=== PATIENT | female | born 1950 | race Caucasian/White ===

== ENCOUNTER → 2016-07-15 | Outpatient (CLI) | payer BC ==
[~2016-07-15] MED LIST: ACET-1256 PO; CHOL100010 PO; FLX10 PO; HYDR-4313 PO; HYDR-5688 PO; LSN5 PO; MELO15TA4 PO; PANT40TA PO; PRED20TA PO; RANI300T2 PO
--- NOTE | 2016-07-15 13:48 | DIAGNOSTIC IMAGING REPORT ---
L-SPINE MIN 4 VIEWS ROUTINE CLINICAL HISTORY: Back pain. COMPARISON: None FINDINGS: There is mild rightward curvature of the lumbar spine. No acute fracture is identified. Sacroiliac joints are in intact. There is mild to moderate degenerative disc disease and facet arthrosis. IMPRESSION: 1. No acute lumbar spine fracture. 2. Mild dextroscoliosis of the lumbar spine. 3. Mild to moderate multilevel degenerative changes of the lumbar spine. Electronically signed by: Saravanan Smith M.D. 07/15/2016 1:46 PM Dictated Date/Time: 07/15/2016 1:45 PM
--- NOTE | 2016-07-15 13:53 | DIAGNOSTIC IMAGING REPORT ---
THORACIC SPINE 3 VIEWS ROUTINE CLINICAL HISTORY: Back pain COMPARISON STUDY: No previous studies for comparison. FINDINGS: The paraspinal line is not displaced. No acute fractures are visualized. There is a minor inferior endplate T9 deformity which is felt to be old. Degenerative changes are present at the T9-T10 level. IMPRESSION: Degenerative changes at the T9-10 level. No acute fractures are visualized. Electronically signed by: Kael Hamilton M.D. 07/15/2016 1:52 PM Dictated Date/Time: 07/15/2016 1:51 PM
== END | disposition home or self-care (01) ==
LOC: C.RAD1850 13:06
PROVIDERS: ATTEND Nurse Practitioner Family
DX: M54.9 Dorsalgia, unspecified (principal)

== ENCOUNTER 2016-07-18 15:31 | Emergency (ER) | payer BC ==
[~2016-07-18] VITALS: Ht 163.8 cm; Wt 78.2 kg
[~2016-07-18 15:31] MED LIST changes: -ACET-1256 PO; -FLX10 PO; -HYDR-4313 PO; -HYDR-5688 PO; -LSN5 PO; -MELO15TA4 PO; -PRED20TA PO
[2016-07-18 15:33] VITALS: TEMP 36.5; Ht 163.8 cm; Wt 78.2 kg
--- NOTE | 2016-07-18 16:01 | EMERGENCY ROOM VISIT NOTE ---
History Report prepared by Frida: Xiomara Witt Under the Supervision of: Dr. Clovis Dubois M.D. First contact with patient: 15:41 Chief Complaint: BACK PAIN Stated Complaint: BACK PAIN ON RIGHT SIDE History of Present Illness The patient is a 66 year old female who presents to the Emergency Room with complaints of worsening right sided back pain beginning 2 weeks prior to arrival. She rates her pain as 8/10 in severity. The patient had X-rays done earlier this week that revealed what looked like arthritis. She notes that moving from laying down to sitting up worsens the pain. The patient has been taking muscle relaxers, Tylenol and Hydrocodone for the pain. She denies kidney stone history, past kidney infections, fall or trauma to the back, rash, urinary symptoms, or fever. The patient was referred to the ED by her PCP. She is starting physical therapy next week. 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 A total of 10 systems reviewed and were otherwise negative. Past Medical & Surgical Surgical Problems: (1) S/P appendectomy Family History Cancer Diabetes mellitus FH: heart disease Hypertension Social History Smoking Status: Never Smoker Alcohol Use: occasionally Marital Status: Housing Status: lives with significant other Occupation Status: employed Current/Historical Medications Scheduled Cholecalciferol (Vitamin D), 2,000 INTER.UNIT PO DAILY Lisinopril (Lisinopril), 5 MG PO QAM Meloxicam (Meloxicam), 15 MG PO QAM Pantoprazole (Protonix), 40 MG PO QAM Prednisone (Prednisone), 0 PO DAILY Ranitidine (Zantac), 300 MG PO HS Scheduled PRN Acetaminophen (Tylenol), 1,000 MG PO DIRECTED PRN for Pain Acetaminophen/Hydrocodone (Hydrocodone/Acetaminophen 5-325 mg), 1 TAB PO BID PRN for Pain Cyclobenzaprine HCl (Cyclobenzaprine HCl), 10 MG PO DIRECTED PRN for Muscle Spasms Hydrocodone/Acetaminophen 5MG/325MG ([place] 5MG/325MG), 1 TABLET PO Q4H PRN for Pain Allergies Coded Allergies: Amoxicillin (Verified Allergy, Unknown, DIGESTIVE ISSUES, 07/18/16) Physical Exam Vital Signs Date Time Temp Pulse Resp B/P Pulse Ox O2 Delivery O2 Flow Rate FiO2 07/18/16 17:29 80 18 147/85 95 Room Air 07/18/16 15:33 36.5 91 18 143/91 98 Room Air Physical Exam GENERAL: Patient is in no acute distress. HEENT: No acute trauma, normocephalic atraumatic, mucous membranes moist, no nasal congestion, no scleral icterus. NECK: No stridor, no adenopathy, no meningismus, trachea is midline. LUNGS: Clear to auscultation bilaterally, no wheeze, no rhonchi, breath sounds equal. HEART: Without murmurs gallops or rubs, regular rate and rhythm. ABDOMEN: Soft, nontender, bowel sounds positive, no hernias, no peritonitis. BACK: Muscle spasm to right lumbar region, no spinal bony step off or focal tenderness, pain worsens with movement, no rash. EXTREMITIES: No cyanosis or edema, full range of motion of all the joints without pain or difficulty, no signs for acute trauma. NEUROLOGIC: Oriented x 3, no acute motor or sensory deficits, no focal weakness. SKIN: No rash, no jaundice, no diaphoresis. Medical Decision & Procedures ER Provider Diagnostic Interpretation: CT results as stated below per my review and radiologist interpretation: CT LUMBAR SPINE WITHOUT CT DOSE: 1367.34 mGy.cm CLINICAL HISTORY: Persistent back pain TECHNIQUE: Helical images were acquired in transverse plane. Reformatted sagittal and coronal images were reviewed. CONTRAST: No contrast was administered COMPARISON STUDY: Conventional radiographic study dated 07/15/2016 FINDINGS: L1-2 level: There is a mild age-indeterminate superior endplate L1 compression fracture. No disc herniations are visualized. There is no spinal or foraminal stenosis. L2-3 level: There is a mild circumferential disc bulge. There is no significant spinal or foraminal stenosis. L3-4 level: There is a circumferential disc bulge. There is mild spinal stenosis. There is no significant foraminal narrowing L4-5 level: There is a superior endplate L4 deformity, which is felt to be old. There is a mild circumferential disc bulge. There is minimal spinal canal narrowing. L5-S1 level: There is a mild circumference disc bulge. There is no significant spinal or foraminal stenosis. IMPRESSION: 1. Osteopenia 2. Mild age-indeterminate superior endplate L1 compression fracture 3. Superior endplate L4 deformity which is felt to be old 5. Mild spinal stenosis the L3-4 level, minimal spinal canal narrowing at the L4-5 level. Electronically signed by: Kael Hamilton M.D. 07/18/2016 4:29 PM Dictated Date/Time: 07/18/2016 4:[address] OF THE ABDOMEN AND PELVIS WITHOUT CONTRAST, STONE PROTOCOL CLINICAL HISTORY: Right flank pain and hematuria. COMPARISON STUDY: None. TECHNIQUE: Helical axial images of the abdomen and pelvis were obtained without IV or oral contrast according to renal stone protocol. FINDINGS: No renal, ureteral or bladder calculi are present. There is mild dilatation of both collecting systems, left greater than right. There is also slight dilatation of the distal left ureter. No perinephric infiltration is present. There is trace gas within the bladder. Evaluation the remainder of the abdomen and pelvis is suboptimal on this unenhanced exam. The liver, spleen, adrenal glands and pancreas are unremarkable. There is a splenule. There is no evidence for a bowel obstruction. The appendix is not visualized but there is no right lower quadrant inflammation. There is no lymphadenopathy. There may be trace fluid within the pelvis. The lumbar spine will be reported separate. There is mild loss of height of the superior endplates of multiple lower thoracic and lumbar vertebra which is likely old. No acute fracture is identified. IMPRESSION: 1. No urinary calculi. Mild dilatation of both collecting systems, left greater than right. Although age indeterminate, this is likely chronic. 2. Small amount of gas gas within the bladder which could be correlated with recent instrumentation. 3. Mild loss of height of the superior endplates of multiple lower thoracic and lumbar vertebra. Although age indeterminate, these are likely old. 4. Trace bilateral pleural effusions. Electronically signed by: Saravanan Smith M.D. 07/18/2016 4:31 PM Dictated Date/Time: 07/18/2016 4:21 PM Laboratory Results 07/18/16 16:05 Red Blood Count 4.34, Mean Corpuscular Volume 88.9, Mean Corpuscular Hemoglobin 30.4, Mean Corpuscular Hemoglobin Concent 34.2, Mean Platelet Volume 10.1, Neutrophils (%) (Auto) 52.0, Lymphocytes (%) (Auto) 36.9, Monocytes (%) (Auto) 7.8, Eosinophils (%) (Auto) 2.6, Basophils (%) (Auto) 0.2, Neutrophils # (Auto) 2.20, Lymphocytes # (Auto) 1.56, Monocytes # (Auto) 0.33, Eosinophils # (Auto) 0.11, Basophils # (Auto) 0.01 07/18/16 16:05 Test 07/18/16 16:05 07/18/16 16:10 White Blood Count 4.23 K/uL (4.8-10.8) Red Blood Count 4.34 M/uL (4.2-5.4) Hemoglobin 13.2 g/dL (12.0-16.0) Hematocrit 38.6 % (37-47) Mean Corpuscular Volume 88.9 fL (80-100) Mean Corpuscular Hemoglobin 30.4 pg (25-34) Mean Corpuscular Hemoglobin Concent 34.2 g/dl (32-36) Platelet Count 177 K/uL (130-400) Mean Platelet Volume 10.1 fL (7.4-10.4) Neutrophils (%) (Auto) 52.0 % Lymphocytes (%) (Auto) 36.9 % Monocytes (%) (Auto) 7.8 % Eosinophils (%) (Auto) 2.6 % Basophils (%) (Auto) 0.2 % Neutrophils # (Auto) 2.20 K/uL (1.4-6.5) Lymphocytes # (Auto) 1.56 K/uL (1.2-3.4) Monocytes # (Auto) 0.33 K/uL (0.11-0.59) Eosinophils # (Auto) 0.11 K/uL (0-0.5) Basophils # (Auto) 0.01 K/uL (0-0.2) RDW Standard Deviation 44.2 fL (36.4-46.3) RDW Coefficient of Variation 13.5 % (11.5-14.5) Immature Granulocyte % (Auto) 0.5 % Immature Granulocyte # (Auto) 0.02 K/uL (0.00-0.02) Erythrocyte Sedimentation Rate 13 mm/hr (0-21) Anion Gap 8.0 mmol/L (3-11) Est Creatinine Clear Calc Drug Dose 71.7 ml/min Estimated GFR () 89.0 Estimated GFR (Non- 76.8 BUN/Creatinine Ratio 14.7 (10-20) Calcium Level 8.4 mg/dl (8.5-10.1) Total Bilirubin 0.4 mg/dl (0.2-1) Aspartate Amino Transf (AST/SGOT) 18 U/L (15-37) Alanine Aminotransferase (ALT/SGPT) 42 U/L (12-78) Alkaline Phosphatase 101 U/L (45-117) Total Protein 6.8 gm/dl (6.4-8.2) Albumin 3.4 gm/dl (3.4-5.0) Globulin 3.4 gm/dl (2.5-4.0) Albumin/Globulin Ratio 1.0 (0.9-2) Urine Color YELLOW Urine Appearance CLEAR (CLEAR) Urine pH 6.5 (4.5-7.5) Urine Specific [place] 1.000 (1.000-1.030) Urine Protein NEG (NEG) Urine Glucose (UA) NEG (NEG) Urine Ketones NEG (NEG) Urine Occult Blood TRACE (NEG) Urine Nitrite NEG (NEG) Urine Bilirubin NEG (NEG) Urine Urobilinogen NEG (NEG) Urine Leukocyte Esterase TRACE (NEG) Urine WBC (Auto) 1-5 /hpf (0-5) Urine RBC (Auto) 0-4 /hpf (0-4) Urine Hyaline Casts (Auto) 0 /lpf (0-5) Urine Epithelial Cells (Auto) 0-5 /lpf (0-5) Urine Bacteria (Auto) NEG (NEG) Laboratory results reviewed by me. Medications Administered Medications (Trade) Dose Ordered Sig/Chucho Route Start Time Stop Time Status Last Admin Dose Admin Ketorolac Tromethamine (Toradol Inj) 30 mg NOW STAT IV 07/18/16 16:40 07/18/16 16:41 DC 07/18/16 16:49 30 MG ED Course 1541: The patient was evaluated in room B2. A complete history and physical exam was performed. 1640: Toradol Inj 30 mg IV. 1726: I reevaluated the patient. 1732: Reevaluated the patient. Discussed results and discharge instructions: She verbalized understanding and agreement. The patient is ready for discharge. Medical Decision The patient is a 66 year old female who presents to the ED with complaints of back pain. Differential diagnoses considered include musculoskeletal pain, compression fracture, nerve impingement, shingles, renal colic. There is no leukocytosis or concerning anemia. No significant electrolyte abnormality, kidney failure or hepatitis. Urinalysis does not show infection or hematuria. Sedimentation rate is not significantly elevated. Abdominal and pelvis CT does not show any evidence for a ureteral stone. Some chronic mild hydronephrosis was seen. Lumbar spine CT shows some arthritis and some mild compression fractures, the compression fractures were age indeterminate, likely old. Patient did receive IV Toradol for pain, she wanted nothing more. Patient's right lumbar pain is likely musculoskeletal. The muscles do seem to be in spasm on exam, the pain does worsen with motion. The patient is being discharged with some additional [place] for pain, prednisone for inflammation, she will continue her muscle relaxers; massage, stretching and physical therapy were suggested. If things are worsening, she can return. [place] Drug Monitoring Program Search Results: patient reviewed within database, no issues identified Impression Primary Impression: Right lumbar pain Scribe Attestation The scribe's documentation has been prepared under my direction and personally reviewed by me in its entirety. I confirm that the note above accurately reflects all work, treatment, procedures, and medical decision making performed by me. Departure Information Dispostion Home / Self-Care Prescriptions Prednisone (Prednisone) 20 Mg Tab 0 PO DAILY, #18 TAB 3 DAILY FOR 3 DAYS, THEN 2 DAILY FOR 3 DAYS, THEN 1 DAILY FOR 3 DAYS. Prov: Clovis Dubois M.D. 07/18/16 Hydrocodone/Acetaminophen 5MG/325MG ([place] 5MG/325MG) Tab 1 TABLET PO Q4H Y for Pain, #15 TAB Prov: Clovis Dubois M.D. 07/18/16 Referrals Kat Hansen DO (PCP) Forms HOME CARE DOCUMENTATION FORM, IMPORTANT VISIT INFORMATION Patient Instructions My [facility] Additional Instructions massage, heat and gentle strething physical therapy as scheduled no lifting or stooping prednisone taper as directed norco 1 tab every 4 hours for severe pain continue the muscle relaxer and anti-inflammatory start Senokot S for constipation return for fever or vomiting or uncontrolled pain
[2016-07-18 16:26] LABS: BASO % 0.2 %; BASO ABS # 0.01 K/uL (0-0.2); COMPLETE YES; EOS % 2.6 %; HEMATOCRIT 38.6 % (37-47); IG% 0.5 %; LYMPH % 36.9 %; LYMPH ABS # 1.56 K/uL (1.2-3.4); MEAN CELL VOLUME 88.9 fL (80-100); MEAN CORPUSCULAR HEMOGLOBIN 30.4 pg (25-34); MEAN CORPUSCULAR HGB CONC 34.2 g/dl (32-36); MEAN PLATELET VOLUME 10.1 fL (7.4-10.4); MONO % 7.8 %; PLATELET COUNT 177 K/uL (130-400); RED BLOOD COUNT 4.34 M/uL (4.2-5.4); WHITE BLOOD COUNT 4.23 K/uL (4.8-10.8)
[2016-07-18 16:30] LABS: URINE APPEARANCE CLEAR (CLEAR); URINE BILIRUBIN NEG (NEG); URINE COLOR YELLOW; URINE EPITHELIAL CELL AUTO 0-5 /lpf (0-5); URINE NITRITE NEG (NEG); URINE PH 6.5 (4.5-7.5); UROBILINOGEN NEG (NEG)
--- NOTE | 2016-07-18 16:31 | DIAGNOSTIC IMAGING REPORT ---
CT LUMBAR SPINE WITHOUT CT DOSE: 1367.34 mGy.cm CLINICAL HISTORY: Persistent back pain TECHNIQUE: Helical images were acquired in transverse plane. Reformatted sagittal and coronal images were reviewed. CONTRAST: No contrast was administered COMPARISON STUDY: Conventional radiographic study dated 07/15/2016 FINDINGS: L1-2 level: There is a mild age-indeterminate superior endplate L1 compression fracture. No disc herniations are visualized. There is no spinal or foraminal stenosis. L2-3 level: There is a mild circumferential disc bulge. There is no significant spinal or foraminal stenosis. L3-4 level: There is a circumferential disc bulge. There is mild spinal stenosis. There is no significant foraminal narrowing L4-5 level: There is a superior endplate L4 deformity, which is felt to be old. There is a mild circumferential disc bulge. There is minimal spinal canal narrowing. L5-S1 level: There is a mild circumference disc bulge. There is no significant spinal or foraminal stenosis. IMPRESSION: 1. Osteopenia 2. Mild age-indeterminate superior endplate L1 compression fracture 3. Superior endplate L4 deformity which is felt to be old 5. Mild spinal stenosis the L3-4 level, minimal spinal canal narrowing at the L4-5 level. Electronically signed by: Kael Hamilton M.D. 07/18/2016 4:29 PM Dictated Date/Time: 07/18/2016 4:25 PM
[2016-07-18 16:33] LABS: MANUAL MICROSCOPIC REQUIRED? NO; REVIEW REQ? NO
--- NOTE | 2016-07-18 16:33 | DIAGNOSTIC IMAGING REPORT ---
CT OF THE ABDOMEN AND PELVIS WITHOUT CONTRAST, STONE PROTOCOL CLINICAL HISTORY: Right flank pain and hematuria. COMPARISON STUDY: None. TECHNIQUE: Helical axial images of the abdomen and pelvis were obtained without IV or oral contrast according to renal stone protocol. FINDINGS: No renal, ureteral or bladder calculi are present. There is mild dilatation of both collecting systems, left greater than right. There is also slight dilatation of the distal left ureter. No perinephric infiltration is present. There is trace gas within the bladder. Evaluation the remainder of the abdomen and pelvis is suboptimal on this unenhanced exam. The liver, spleen, adrenal glands and pancreas are unremarkable. There is a splenule. There is no evidence for a bowel obstruction. The appendix is not visualized but there is no right lower quadrant inflammation. There is no lymphadenopathy. There may be trace fluid within the pelvis. The lumbar spine will be reported separate. There is mild loss of height of the superior endplates of multiple lower thoracic and lumbar vertebra which is likely old. No acute fracture is identified. IMPRESSION: 1. No urinary calculi. Mild dilatation of both collecting systems, left greater than right. Although age indeterminate, this is likely chronic. 2. Small amount of gas gas within the bladder which could be correlated with recent instrumentation. 3. Mild loss of height of the superior endplates of multiple lower thoracic and lumbar vertebra. Although age indeterminate, these are likely old. 4. Trace bilateral pleural effusions. Electronically signed by: Saravanan Smith M.D. 07/18/2016 4:31 PM Dictated Date/Time: 07/18/2016 4:21 PM
[2016-07-18] MEDS ORDERED: KETOROLAC TROMETHAMINE 30 MG/ML VIAL IV STA (16:40)
[2016-07-18 16:54] LABS: BUN/CREATININE RATIO 14.7 (10-20); CALCIUM 8.4 mg/dl (8.5-10.1); CREATININE 0.81 mg/dl (0.60-1.20); POTASSIUM 3.7 mmol/L (3.5-5.1)
[2016-07-18 17:29] VITALS: BP 147/85; PULSE 80; O2SAT 95
[2016-07-18] MEDS ORDERED: HYDR-5688 PO (17:33)
[2016-07-18] MEDS ORDERED: PRED20TA PO (17:33)
[2016-07-18] MEDS ORDERED: ACET-1256 PO (17:40)
[2016-07-18] MEDS ORDERED: LSN5 PO (17:40)
[2016-07-18] MEDS ORDERED: MELO15TA4 PO (17:40)
[2016-07-18] MEDS ORDERED: HYDR-4313 PO (17:40)
[2016-07-18] MEDS ORDERED: FLX10 PO (17:40)
== END 2016-07-18 17:45 | disposition home or self-care (01) ==
LOC: C.EDB 15:31
DX: M54.5 Low back pain (principal); Z90.89 Acquired absence of other organs; Z80.9 Family history of malignant neoplasm, unspecified; Z83.3 Family history of diabetes mellitus; Z88.1 Allergy status to other antibiotic agents

== ENCOUNTER → 2016-07-25 | Outpatient (CLI) | payer BC ==
[~2016-07-25] MED LIST changes: +ACET-1256 PO; +FLX10 PO; +HYDR-4313 PO; +HYDR-5688 PO; +LSN5 PO; +MELO15TA4 PO; +PRED20TA PO
[2016-07-25 12:50] LABS: ALT/SGPT 61 U/L (12-78); AST/SGOT 13 U/L (15-37); BLOOD UREA NITROGEN 18 mg/dl (7-18); BUN/CREATININE RATIO 22.1 (10-20); CALCIUM 8.8 mg/dl (8.5-10.1); CARBON DIOXIDE 26 mmol/L (21-32); CHLORIDE 103 mmol/L (98-107); CREATININE 0.83 mg/dl (0.60-1.20); GLUCOSE 119 mg/dl (70-99); POTASSIUM 3.8 mmol/L (3.5-5.1); SODIUM 139 mmol/L (136-145)
[2016-07-25 12:51] LABS: ALKALINE PHOSPHATASE 108 U/L (45-117)
== END | disposition home or self-care (01) ==
LOC: C.LAB 10:20
PROVIDERS: ATTEND Family Medicine
DX: Z13.1 Encounter for screening for diabetes mellitus (principal); R03.0 Elevated blood-pressure reading, without diagnosis of hypertension

== ENCOUNTER → 2016-08-12 | Outpatient (CLI) | payer BC | END | disposition home or self-care (01) | LOC: C.MAMM 13:08 | PROVIDERS: ATTEND Family Medicine | DX: S32.000A Wedge compression fracture of unspecified lumbar vertebra, initial encounter for closed fracture (principal); X58.XXXA Exposure to other specified factors, initial encounter; M81.0 Age-related osteoporosis without current pathological fracture; M85.80 Other specified disorders of bone density and structure, unspecified site; Z78.0 Asymptomatic menopausal state; Z82.62 Family history of osteoporosis ==

== ENCOUNTER → 2016-08-19 | Outpatient (CLI) | payer BC | END | disposition home or self-care (01) | LOC: C.LAB 09:52 | PROVIDERS: ATTEND Family Medicine | DX: M81.0 Age-related osteoporosis without current pathological fracture (principal) ==

== ENCOUNTER → 2016-09-16 | Outpatient (CLI) | payer BC ==
[2016-09-16 18:50] LABS: URINE APPEARANCE CLEAR (CLEAR); URINE BILIRUBIN NEG (NEG); URINE COLOR DK YELLOW; URINE NITRITE POS (NEG); URINE PH 6.5 (4.5-7.5); URINE SPECIFIC GRAVITY 1.004 (1.000-1.030); UROBILINOGEN NEG (NEG)
[2016-09-16 18:53] LABS: MANUAL MICROSCOPIC REQUIRED? NO; REVIEW REQ? NO
== END | disposition home or self-care (01) ==
LOC: C.LABSPEC 17:44
PROVIDERS: ATTEND Nurse Practitioner Adult Health
DX: R39.9 Unspecified symptoms and signs involving the genitourinary system (principal)

== ENCOUNTER → 2017-05-13 | Outpatient (CLI) | payer BC ==
[~2017-05-13] MED LIST changes: -ACET-1256 PO; +ALEN70TA3 PO; +ASCA500 PO; +BUSP5TAB59 PO; +CALC500C70 PO; -CHOL100010 PO; +CHOL2000 PO; -FLX10 PO; -HYDR-4313 PO; -HYDR-5688 PO; +LISI-461 PO; -LSN5 PO; -MELO15TA4 PO; -PRED20TA PO
[2017-05-13 09:58] LABS: ALT/SGPT 42 U/L (12-78); BLOOD UREA NITROGEN 13 mg/dl (7-18); BUN/CREATININE RATIO 16.1 (10-20); CARBON DIOXIDE 29 mmol/L (21-32); CHLORIDE 105 mmol/L (98-107); CHOLESTEROL 194 mg/dl (0-200); CREATININE 0.82 mg/dl (0.60-1.20); GLUCOSE 94 mg/dl (70-99); POTASSIUM 4.1 mmol/L (3.5-5.1); SODIUM 142 mmol/L (136-145); TRIGLYCERIDES 50 mg/dl (0-150); VERY LOW DENSITY LIPOPROT CALC 10 mg/dl
[2017-05-13 10:01] LABS: ALB/GLOB RATIO 1.1 (0.9-2); ALKALINE PHOSPHATASE 76 U/L (45-117); AST/SGOT 22 U/L (15-37); CHOLESTEROL/HDL RATIO 2.9; HDL CHOLESTEROL 67 mg/dl; LDL CHOLESTEROL CALCULATED 117 mg/dl
== END | disposition home or self-care (01) ==
LOC: C.LAB 07:23
PROVIDERS: ATTEND Nurse Practitioner Family
DX: Z13.220 Encounter for screening for lipoid disorders (principal)

== ENCOUNTER 2017-05-25 05:50 | Day surgery (SDC) | payer BC ==
[2017-05-12 10:49] VITALS: BMI 28.0
--- NOTE | 2017-05-12 11:18 | PAT Medication Instructions ---
Service Date May 12, 2017. Current Home Medication List Alendronate/Cholecalciferol (Fosamax+D 70MG/5600 Iu), 1 TABLET PO WK Ascorbic Acid (Vitamin C), 1 TAB PO QPM Buspirone Hcl (Buspirone Hcl), 1 TAB PO BID Calcium/Vitamin D ([place] 500 Plus D), 1 TAB PO QPM Cholecalciferol (Vitamin D3), 1 CAP PO QPM Lisinopril (Zestril), 10 MG PO QAM Pantoprazole (Protonix), 40 MG PO QAM Ranitidine (Zantac), 300 MG PO HS Medication Instructions For Your Scheduled Surgery -Continue as directed: Alendronate/Cholecalciferol (Fosamax+D 70MG/5600 Iu), 1 TABLET PO WK - Hold the following medications the morning of surgery: Lisinopril (Zestril), 10 MG PO QAM - Take the following medications the morning of surgery with a sip of water: Buspirone Hcl (Buspirone Hcl), 1 TAB PO BID Pantoprazole (Protonix), 40 MG PO QAM - Take the following medications as scheduled the night before surgery: Cholecalciferol (Vitamin D3), 1 CAP PO QPM Calcium/Vitamin D ([place] 500 Plus D), 1 TAB PO QPM Ascorbic Acid (Vitamin C), 1 TAB PO QPM Buspirone Hcl (Buspirone Hcl), 1 TAB PO BID Ranitidine (Zantac), 300 MG PO HS If you have any questions please call us at [phone] or [phone] or [phone]
[2017-05-12 11:52] LABS: BASO % 0.6 %; BASO ABS # 0.03 K/uL (0-0.2); COMPLETE YES; EOS % 4.8 %; IG% 0.2 %; LYMPH ABS # 1.94 K/uL (1.2-3.4); MEAN CELL VOLUME 90.1 fL (80-100); MEAN CORPUSCULAR HEMOGLOBIN 30.3 pg (25-34); MEAN CORPUSCULAR HGB CONC 33.7 g/dl (32-36); MEAN PLATELET VOLUME 9.9 fL (7.4-10.4); MONO % 6.4 %; PLATELET COUNT 211 K/uL (130-400); RED BLOOD COUNT 4.55 M/uL (4.2-5.4); WHITE BLOOD COUNT 4.97 K/uL (4.8-10.8)
[2017-05-12 11:53] LABS: URINE APPEARANCE CLEAR (CLEAR); URINE BILIRUBIN NEG (NEG); URINE COLOR YELLOW; URINE NITRITE NEG (NEG); URINE PH 7.5 (4.5-7.5); URINE SPECIFIC GRAVITY 1.011 (1.000-1.030); UROBILINOGEN NEG (NEG)
[2017-05-12 12:01] LABS: BUN/CREATININE RATIO 14.7 (10-20); CALCIUM 9.1 mg/dl (8.5-10.1); CREATININE 0.79 mg/dl (0.60-1.20); POTASSIUM 4.3 mmol/L (3.5-5.1)
[2017-05-12 12:02] LABS: MANUAL MICROSCOPIC REQUIRED? NO; REVIEW REQ? NO
--- NOTE | 2017-05-12 12:07 | DIAGNOSTIC IMAGING REPORT ---
CHEST 2 VIEWS ROUTINE HISTORY: Preop. COMPARISON: None. FINDINGS: The lungs are clear. Cardiac silhouette is normal in size. No pleural effusions. No pneumothorax. Mild inferior endplate compression deformity within the lower thoracic spine is old. IMPRESSION: No acute process. Electronically signed by: Haroon Dale M.D. 05/12/2017 12:06 PM Dictated Date/Time: 05/12/2017 12:04 PM
[~2017-05-25] VITALS: Ht 162.6 cm; Wt 76.1 kg
[2017-05-25] MEDS ORDERED: CIPROFLOXACIN / D5W 400 MG IV SCH (06:00)
[2017-05-25] MEDS ORDERED: LACTATED RINGER'S 1000ML 1,000 ML IV SCH (06:00)
[2017-05-25] MEDS ORDERED: HYDROmorphone INJ 1 MG/ML SYR IV PRN (06:15)
[2017-05-25] MEDS ORDERED: EpHEDrine SULFATE INJ 50 MG/ML AMP IV PRN (06:15)
[2017-05-25] MEDS ORDERED: FENTANYL CITRATE INJ 50 MCG/1 ML 2 ML VIAL IV PRN (06:15)
[2017-05-25] MEDS ORDERED: PHENYLEPHRINE 100MCG/ML 5ML SYR IV PRN (06:15)
[2017-05-25] MEDS ORDERED: ONDANSETRON INJ 2 MG/ML 2 ML VIAL IV PRN (06:15)
[2017-05-25] MEDS ORDERED: ATROPINE SULFATE 0.1 MG/ML 5ML SYR IV PRN (06:15)
[2017-05-25 06:17] VITALS: BP 159/87; PULSE 84; TEMP 36.8; O2SAT 98; Ht 162.6 cm; Wt 76.1 kg
[2017-05-25] MEDS ORDERED: ONDANSETRON INJ 2 MG/ML 2 ML VIAL ONE (06:58)
[2017-05-25] MEDS ORDERED: DEXAMETHASONE SOD INJ 4 MG/ML VIAL ONE (06:58)
[2017-05-25] MEDS ORDERED: FENTANYL CITRATE INJ 50 MCG/1 ML 2 ML VIAL ONE (06:58)
[2017-05-25] MEDS ORDERED: MIDAZOLAM HCL 1 MG/ML 2ML VIAL ONE (06:58)
[2017-05-25] MEDS ORDERED: LIDOCAINE HCL 2% 2 ML VIAL (20MG/ML) ONE (06:58)
[2017-05-25] MEDS ORDERED: PROPOFOL IV EMULSION 10 MG/ML 20 ML VIAL IV ONE ×2 (06:58→07:25)
--- NOTE | 2017-05-25 07:00 | History & Physical Bridge Note ---
H&P Re-Evaluation Bridge Note: I have examined the patient, reviewed the History & Physical and in the interval since the performance of the History & Physical I have noted the following changes of clinical significance: No changes noted
[2017-05-25] MEDS ORDERED: PHENYLEPHRINE 100MCG/ML 5ML SYR ONE (07:34)
[2017-05-25] MEDS ORDERED: OXYC-57 PO (07:55)
--- NOTE | 2017-05-25 07:56 | Discharge Instructions ---
Discharge Instructions Date of Service May 25, 2017. Visit Reason for Visit: Abnormal Bladder Mucosa Discharge Discharge Diagnosis / Problem: Abnormal bladder mucosa Discharge Goals Goal(s): Therapeutic intervention Activity Recommendations Activity Limitations: resume your previous activity Exercise/Sports Limitations: rest today May Resume Sexual Activity: when tolerated Shower/Bathe: no limitations Driving or Machine Use: resume 1 day after discharge Anesthesia . Post Anesthesia Instructions: If you have had General Anesthesia or IV Sedation: * Do not drive today. * Resume driving when surgeon permits. * Do not make important decisions or sign legal documents today. * Call surgeon for: 1. Temperature elevations greater than 101 degrees F. 2. Uncontrollable pain. 3. Excessive bleeding. 4. Persistent nausea and vomiting. 5. Medication intolerance (nausea, vomiting or rash). * For nausea and vomiting use only clear liquids such as: tea, soda, bouillon until nausea subsides, then gradually increase diet as tolerated. * If you have any concerns or questions, call your surgeon's office. If physician is unavailable and it is an emergency, call 911 or go to the nearest emergency room. . Diet Recommendations Recommended Home Diet: resume previous diet Procedures Procedures Performed: Cystoscopy, Bladder Biopsy and Fulguration Pending Studies Studies pending at discharge: no Medical Emergencies . Who to Call and When: Medical Emergencies: If at any time you feel your situation is an emergency, please call 911 immediately. . Non-Emergent Contact Non-Emergency issues call your: Urologist Call Non-Emergent contact if: temperature is above 101.5, your pain is not controlled . . "Provider Documentation" section prepared by Pepe Power. . [place] Drug Monitoring Program Search Results: patient reviewed within database
[2017-05-25] MEDS ORDERED: OXYCODONE/ACETAMINOPHEN 5-325 TAB PO PRN (08:00)
[2017-05-25] MEDS: LABETALOL HCL IV 5 MG/ML 20ML IV PRN ×3 (08:04→08:27)
--- NOTE | 2017-05-25 08:09 | [facility] Operative Report ---
Operative Report Operative Date May 25, 2017. 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 Both ureteral orifices were effluxing clear urine Specimens A: Bladder Biopsy Drains none Anesthesia Gen. Complication(s) None Disposition Recovery Room / PACU Indications Patient is a 67-year-old white female who on evaluation for gross hematuria was found to have abnormal appearing bladder mucosa. She is being brought in for biopsy Description of Procedure After the induction of an adequate general anesthetic and appropriate timeout patient was placed in the dorsolithotomy position. Lower abdomen and genitalia were prepped with Hibiclens and draped in a sterile fashion. Using a 22 German cystoscope routine cystoscopic exam was performed with the above-noted findings with the 30 and 70 lenses. Next using cold cup biopsy forceps the abnormal mucosa was biopsied. The biopsy sites were then fulgurated for hemostasis. Care was taken to avoid injury to either ureteral orifice. Patient's bladder was then drained cystoscope and sheath removed. All needle sponge and instrument counts were correct at the end of the case. Patient tolerated the procedure well and was taken to the recovery room in stable condition I attest to the content of the Intraoperative Record and any orders documented therein. Any exceptions are noted below.
--- NOTE | 2017-05-25 08:35 | Anesthesiology Progress Note ---
Anesthesia Post Op Note Date & Time May 25, 2017 at 08:35 Vital Signs Pain Intensity: 0 Vital Signs Past 12 Hours Date Time Temp Pulse Resp B/P (MAP) Pulse Ox O2 Delivery O2 Flow Rate FiO2 05/25/17 08:20 65 12 154/103 100 Oxymask 5 05/25/17 08:10 66 12 147/99 100 Oxymask 10 05/25/17 08:00 77 16 162/101 100 Oxymask 10 05/25/17 07:53 36.0 83 16 175/94 100 Oxymask 10 05/25/17 06:17 36.8 84 20 159/87 (111) 98 Room Air Notes Mental Status: alert / awake / arousable, participated in evaluation Pt Amnestic to Procedure: Yes Nausea / Vomiting: adequately controlled Pain: adequately controlled Airway Patency, RR, SpO2: stable & adequate BP & HR: stable & adequate Hydration State: stable & adequate Anesthetic Complications: no major complications apparent Awake, doing well, no complaints. VSS.
[2017-05-25 08:45] VITALS: BP 128/77; PULSE 64; TEMP 37; O2SAT 96
[2017-05-25 09:15] VITALS: BP 150/80; PULSE 63; O2SAT 97
[2017-05-25 09:45] VITALS: BP 128/78; PULSE 76; TEMP 36.6; O2SAT 95
== END 2017-05-25 09:50 | disposition home or self-care (01) ==
LOC: C.ACU 05:50
PROVIDERS: ATTEND Urology
DX: D49.4 Neoplasm of unspecified behavior of bladder (principal); I10 Essential (primary) hypertension; M19.90 Unspecified osteoarthritis, unspecified site; F41.9 Anxiety disorder, unspecified; Z88.1 Allergy status to other antibiotic agents; Z79.899 Other long term (current) drug therapy; Z86.69 Personal history of other diseases of the nervous system and sense organs; Z90.89 Acquired absence of other organs; Z98.890 Other specified postprocedural states; Z98.51 Tubal ligation status; Z82.49 Family history of ischemic heart disease and other diseases of the circulatory system; Z82.5 Family history of asthma and other chronic lower respiratory diseases; Z80.0 Family history of malignant neoplasm of digestive organs; Z83.518 Family history of other specified eye disorder

== ENCOUNTER → 2017-07-23 | Outpatient (CLI) | payer OTHER ==
[~2017-07-23] MED LIST changes: +OXYC-57 PO
== END | disposition home or self-care (01) ==
LOC: C.PATHSPEC 18:03
PROVIDERS: ATTEND Dentist Oral and Maxillofacial Surgery
DX: D10.1 Benign neoplasm of tongue (principal)

== ENCOUNTER → 2017-10-20 | Outpatient (CLI) | payer OTHER | END | disposition home or self-care (01) | LOC: C.LABSPEC 09:06 | PROVIDERS: ATTEND Physician Assistant | DX: K21.9 Gastro-esophageal reflux disease without esophagitis (principal) ==

== ENCOUNTER → 2018-02-15 | Outpatient (CLI) | payer OTHER ==
[~2018-02-15] MED LIST changes: +OPTIRAY 320 IV PRN; -OXYC-57 PO
--- NOTE | 2018-02-15 09:20 | DIAGNOSTIC IMAGING REPORT ---
CT UROGRAM CLINICAL HISTORY: Microscopic hematuria. COMPARISON STUDY: Abdominal CT dated 07/18/2016. TECHNIQUE: Before and following the IV administration of 120 cc of Optiray 320, CT urogram of the abdomen and pelvis is performed from the lung bases to the proximal femora. Images are reviewed in the axial, sagittal, and coronal planes. IV contrast was administered without complication. A dose lowering technique was utilized adhering to the principles of ALARA. CT DOSE: 1962.14 mGycm FINDINGS: Lung bases: The heart is normal in size and without pericardial effusion. The lung bases are clear noting dependent atelectasis. There is a tiny hiatal hernia. Liver: The contrast-enhanced liver is normal in size and contour. The liver demonstrates diffusely diminished attenuation consistent with hepatic steatosis. There is no intrahepatic biliary ductal dilatation. The hepatic veins and portal veins are patent. Gallbladder: Unremarkable. Spleen: Normal in size and attenuation. Pancreas: Unremarkable. Adrenal glands: Unremarkable. Kidneys and ureters: The contrast enhanced kidneys demonstrate mild cortical atrophy and are without hydronephrosis. There are large bilateral extrarenal pelvises. There are no renal calculi identified on the unenhanced images. The kidneys enhance and excrete symmetrically. There is no enhancing renal cortical mass lesion identified. Scattered subcentimeter cortical hypodensities likely represent cysts but are too small for definitive characterization. There is no evidence of urothelial lesion within the renal pelvis bilaterally or along the course of either ureter. Abdominal vasculature: The abdominal aorta is normal in course and caliber noting moderate atherosclerotic calcification. Bowel: The small bowel and colon are normal in course and caliber. The appendix is not identified and reported surgically absent. Peritoneum: There is no intraperitoneal free air or abdominal ascites. Lymphadenopathy: None. Pelvic viscera: Although decompressed, the bladder wall appears thickened and hyperemic. There is mild pericystic stranding and small foci of gas are present within the bladder lumen. The endometrium appears thickened for age, measuring up to 1.5 cm. No adnexal lesion is seen. Skeletal structures: The skeletal structures are osteopenic. There are mild superior endplate compression deformities of T10, T12, L1, and L5. Mild lumbosacral spondylosis is observed. No lytic or blastic lesions are seen. IMPRESSION: 1. There is no hydronephrosis and no renal calculi are identified. 2. Large extrarenal pelvises are seen bilaterally. 3. There is no enhancing renal cortical mass lesion, and no evidence of urothelial lesion involving the renal pelvis bilaterally or the ureters. 4. Although decompressed, the bladder wall appears thickened and hyperemic. Small foci of intraluminal gas are noted there is mild pericystic stranding. Correlate clinically and with urinalysis for evidence of cystitis. 5. The endometrium appears thickened for age measuring up to 1.5 cm. Correlation with pelvic ultrasound is recommended. Electronically signed by: Clovis Peres M.D. 02/15/2018 9:19 AM Dictated Date/Time: 02/15/2018 9:11 AM
== END | disposition home or self-care (01) ==
LOC: C.CTS 08:33
PROVIDERS: ATTEND Nurse Practitioner Family
DX: R31.29 Other microscopic hematuria (principal)